=== PATIENT | female | born 1950 | race Caucasian/White ===

== ENCOUNTER 2018-12-10 10:03 | Outpatient (CLI) | payer MEDICARE, BC ==
--- NOTE | 2018-12-10 11:28 | MMO ---
Bilateral MAMMO Bilat Screen [facility]. CLINICAL HISTORY: Patient is 68 years old and is seen for screening. The patient has the following family history of breast cancer: sister, at age 55 and maternal aunt, at age 43. The patient has no personal history of cancer. VIEWS: The views performed were: bilateral craniocaudal with tomosynthesis and bilateral mediolateral oblique with tomosynthesis. FILMS COMPARED: The present examination has been compared to prior imaging studies performed at [facility] on 08/26/2013, 03/03/2015, 04/11/2016 and 05/15/2017. MAMMOGRAM FINDINGS: There are scattered fibroglandular densities. There are no suspicious masses, suspicious calcifications, or new areas of architectural distortion. IMPRESSION: THERE IS NO MAMMOGRAPHIC EVIDENCE OF MALIGNANCY. A ROUTINE FOLLOW-UP MAMMOGRAM IN 1 YEAR IS RECOMMENDED. THE RESULTS OF THIS EXAM WERE SENT TO THE PATIENT. ACR BI-RADS Category 1 - Negative MAMMOGRAPHY NOTE: 1. A negative mammogram report should not delay a biopsy if a dominant of clinically suspicious mass is present. 2. Approximately 10% to 15% of breast cancers are not detected by mammography. 3. Adenosis and dense breasts may obscure an underlying neoplasm.
== END 2018-12-10 10:04 | disposition home or self-care (01) ==
LOC: BICMAMMO 10:03
PROVIDERS: ATTEND Obstetrics & Gynecology
DX: Z12.31 Encounter for screening mammogram for malignant neoplasm of breast (principal)
CPT/HCPCS: 77063; 77067

== ENCOUNTER 2022-03-15 11:38 | Outpatient (CLI) | payer MEDICARE, BC | END 2022-03-15 11:39 | disposition home or self-care (01) | LOC: BICMAMMO 11:38 | PROVIDERS: ATTEND Family Medicine | DX: Z12.31 Encounter for screening mammogram for malignant neoplasm of breast (principal); Z80.3 Family history of malignant neoplasm of breast | CPT/HCPCS: 77063; 77067 ==

== ENCOUNTER 2022-07-28 13:56 | Outpatient (CLI) | payer MEDICARE, BC | END 2022-07-28 13:57 | disposition home or self-care (01) | LOC: BICMAMMO 13:56 | PROVIDERS: ATTEND Family Medicine | DX: Z13.820 Encounter for screening for osteoporosis (principal); Z78.0 Asymptomatic menopausal state; M85.851 Other specified disorders of bone density and structure, right thigh; M85.852 Other specified disorders of bone density and structure, left thigh | CPT/HCPCS: 77080 ==

== ENCOUNTER 2024-06-30 12:04 | Day surgery (SDC) | payer MEDICARE ==
[2024-06-27 10:11] VITALS: BMI 31.1
[2024-06-30] MEDS ORDERED: Magnevist 469MG/ML 20 ML VIAL ONE (12:21)
[2024-06-30] MEDS ORDERED: Dexamethasone 20 MG/5 ML VIAL ONE (14:15)
[2024-06-30] MEDS ORDERED: ePHEDrine Sulfate 50 MG/10 ML VIAL ONE (14:15)
[2024-06-30] MEDS ORDERED: Ondansetron PF 4 MG/2 ML Vial ONE (14:15)
[2024-06-30] MEDS ORDERED: PROPOFOL 200 MG/20 ML VIAL ONE (14:15)
[2024-06-30] MEDS ORDERED: Lidocaine 1% PF 5 ML VIAL ONE (14:15)
== END 2024-06-30 16:20 | disposition home or self-care (01) ==
LOC: MRI 12:04
PROVIDERS: ATTEND Neurological Surgery
DX: D33.2 Benign neoplasm of brain, unspecified (principal); I48.91 Unspecified atrial fibrillation; I10 Essential (primary) hypertension; I50.9 Heart failure, unspecified; F40.240 Claustrophobia; Z79.899 Other long term (current) drug therapy; Z88.0 Allergy status to penicillin
CPT/HCPCS: 36415; 70553; 76376; 82565